=== PATIENT | female | born 1985 | race Caucasian/White ===

== ENCOUNTER 2022-12-07 05:52 | Emergency (ER) | payer BC, SELFPAY ==
--- NOTE | 2022-12-07 | ECG_ITS ---
Test Reason : ABD PAIN Blood Pressure : / mmHG Vent. Rate : 082 BPM Atrial Rate : 082 BPM P-R Int : 184 ms QRS Dur : 084 ms QT Int : 402 ms P-R-T Axes : 060 047 025 degrees QTc Int : 469 ms Normal sinus rhythm Normal ECG No previous ECGs available Referred By: Generic ED Physician Electronically Signed By:DESHAUN CANALES MD
--- NOTE | ~2022-12-07 | US_ITS ---
EXAMINATION: US ABDOMEN LIMITED CLINICAL INFORMATION: Right upper quadrant pain. COMPARISON: None available. TECHNIQUE: Real-time imaging of the right upper quadrant abdominal viscera. FINDINGS: LIVER: Visualized portions unremarkable. GALLBLADDER: Mildly distended containing multiple gallstones measuring up to 1.6 cm without surrounding abnormality. No mural thickening or pericholecystic fluid. COMMON BILE DUCT: Normal in caliber measuring 0.3 cm in diameter. US/US abdomen limited IMPRESSION: Cholelithiasis without evidence for acute cholecystitis.
[2022-12-07 05:53] VITALS: BP 138/82; PULSE 71; RESP 18; TEMP 36.6; O2SAT 100; BMI 31.8
[2022-12-07 06:22] LABS: MANUAL DIFF FLAG NO
[2022-12-07 06:24] LABS: Appearance Urine Clear; Color Urine Yellow; Glucose Urine UA Negative (Negative); Leukocyte Esterase Urine Negative (Negative); Nitrite Urine Negative (Negative); Urine Blood Negative (Negative); Urine Ketones Negative (Negative); Urine Protein Negative (Neg-Trace)
[2022-12-07 06:26] LABS: UPreg QC Valid YES; Urine Pregnancy NEGATIVE (NEGATIVE)
[2022-12-07 06:27] LABS: Basophils Absolute Auto 0.1 X10*3/uL (0.0-0.2); Basophils Percent Auto 0.7 % (0-2); Eosinophils Absolute Auto 0.2 X10*3/uL (0.0-0.4); Eosinophils Percent Auto 2.1 % (0-4); Hematocrit 41.9 % (37.0-47.0); Hemoglobin 13.8 g/dl (12.0-16.0); Imm Gran Abs Auto 0.02 X10*3/uL (0.00-0.03); Imm Gran Pct Auto 0.2 % (0.0-0.4); Lymphocytes Absolute Auto 3.5 X10*3/uL (1.2-4.9); Lymphocytes Percent Auto 38.4 % (20-40); Mean Corpuscular HGB Conc 32.9 g/dl (31.0-35.0); Mean Corpuscular Hemoglobin 28.9 pg (27.0-33.0); Mean Corpuscular Volume 87.8 fL (80.0-98.0); Mean Platelet Volume 10.6 fL (9.4-12.3); Monocytes Absolute Auto 0.7 X10*3/uL (0.1-1.2); Monocytes Percent Auto 7.9 % (2-11); Neutrophils Absolute Auto 4.7 x10*3/uL (2.0-8.3); Neutrophils Percent Auto 50.7 % (45-73); Platelet Count 242 X10*3/uL (160-400); Red Blood Count 4.77 X10*6/uL (4.20-5.50); Red Cell Distribution Width 12.7 % (11.0-16.0); White Blood Count 9.2 X10*3/uL (4.8-10.8)
[2022-12-07 06:29] VITALS: BP 137/83; PULSE 77; RESP 15; TEMP 36.7; O2SAT 97
--- NOTE | 2022-12-07 06:30 | PC.NURSE ---
Pt frame changer into hospital attire, labs collected and sent. Will continue to monitor.
--- NOTE | 2022-12-07 06:30 | MHC.EDTECH ---
THIS PCT JUST ASSUMED CARE OF PATIENT ,BLOOD DRAWN AND URINE SAMPLE COLLECTED AND SENT TO LAB ,VITALS SIGN TAKEN,EKG DONE AND WAS READ BY PROVIDER ,PT BOYFRIEND AT BEDSIDE ,PT IS RESTING QUIETLY IN BED .
--- NOTE | 2022-12-07 06:33 | PC.NURSE ---
pt denies any pain upon voiding, denies any issues with her bowel movement. Pain level is 8/10. Pt awaiting to be seen by provider. Will continue to monitor.
[2022-12-07 06:39] LABS: Alanine Aminotransferase 15 U/L (0-31); Alkaline Phosphatase 59 U/L (39-117); Anion Gap 11 (12-20); Aspartate Amino Transferase 17 U/L (5-31); Bilirubin Direct 0.1 mg/dL (0.0-0.5); Bilirubin Total 0.4 mg/dL (0.0-1.0); Blood Urea Nitrogen 18 mg/dL (9-16); Calcium 9.8 mg/dL (8.4-10.2); Carbon Dioxide 23 mmol/L (22-29); Chloride 110 mmol/L (96-108); Creatinine Clr Calc Pharmacy 97.2; Estimated Glomerular Filt Rate > 60; Glucose Random 96 mg/dL (60-115); Lipase 31 U/L (8-78); Potassium 4.2 mmol/L (3.3-5.1); Sodium 140 mmol/L (135-145); Total Protein 6.7 g/dL (6.5-8.0)
--- NOTE | 2022-12-07 06:39 | ED_ITS ---
HPI - General Adult General Chief complaint: Abdominal Pain Stated complaint: abd pain Time Seen by Provider: 12/07/22 06:35 Source: patient Mode of arrival: ambulatory Limitations: no limitations History of Present Illness HPI narrative: Patient is a 37 year old assigned female at with a history of thyroid dis ease and anxiety presenting to the emergency department today with epigastric pain. Patient states that over the last few days she she has had epigastric pain. Patient states that she took Ativan with no relief. Patient denies any dizziness, lightheadedness, nausea, vomiting, fever, chills, blurry vision, double vision, loss of vision, chest pain, difficulty breathing, shortness of breath, back pain, night sweats, pain with urination, increased urinary frequency, increased urinary urgency, blood in her urine or stool, syncope or a near syncopal episode, recent trauma or falls, bowel incontinence, bladder incontinence, bowel retention, bladder retention, or any other complaints at this time. Onset (ago): day(s) Location: abdomen Radiation: non-radiation Severity: mild Severity scale (1-10): 3 Quality: dull Pain Consistency: constant Relieving factors: none Exacerbating factors: none Associated symptoms: denies other symptoms Treatments prior to arrival: other (ativan) Related Data Previous Rx's Medication Instructions Recorded omeprazole 20 mg capsule,delayed 20 mg PO DAILY #30 caps 12/07/22 release Allergies Allergy/AdvReac Type Severity Reaction Status Date / Time Seasonal Allergies Allergy Runny Nose Verified 12/07/22 05:57 Review of Systems Constitutional: Constitutional: Reports no additional constitutional complaints, Denies chills, Denies fever(s) and Denies night sweats Eyes: Eyes: Reports no additional eye complaints, Denies blurry vision, Denies change in vision, Denies diplopia, Denies eye discharge, Denies loss of vision and Denies eye pain ENT: Denies dizziness Cardiovascular: Cardiovascular: Reports no additional cardiovascular complaints, Denies chest pain, Denies lightheadedness, Denies Loss of Consciousness and Denies dyspnea Respiratory: Respiratory: Reports no additional respiratory complaints and Denies dyspnea Gastrointestinal: Gastrointestinal: Reports no additional gastrointestinal complaints, Reports abdominal pain, Denies melena, Denies hematochezia, Denies change in bowel habits and Denies change in stool character Genitourinary: Genitourinary: Denies hematuria, Denies urinary frequency, Denies dysuria, Denies urinary incontinence, Denies urinary hesitancy and Denies urinary urgency Musculoskeletal: Musculoskeletal: Reports no additional musculoskeletal complaints, Denies numbness and Denies tingling Neurologic: Denies dizziness, Denies loss of vision, Denies numbness and Denies tingling Psychiatric: Psychiatric: Reports no additional psychiatric complaints Endocrine: Endocrine: Reports no additional endocrine complaints Hematologic/Lymphatic: Hematologic/Lymphatic: Reports no additional hematologic/lymphatic complaints Allergic/Immunologic: Allergic/Immunologic: Reports no additional allergic/immunologic complaints PMFSH Past Medical History Attestation statement: The following information was validated with the patient. Source: old records reviewed and nursing notes reviewed Physical Exam ED Vital Signs: Vital Signs - 24 hr 12/07/22 05:53 12/07/22 06:29 12/07/22 07:15 Temperature 97.8 F 98.1 F 97.6 F Pulse Rate 71 77 69 Respiratory Rate 18 15 16 Blood Pressure 138/82 137/83 135/79 Pulse Oximetry 100 97 100 Oxygen Delivery Method Room Air Room Air Room Air 12/07/22 09:53 Temperature Pulse Rate 72 Respiratory Rate 14 Blood Pressure 127/61 Pulse Oximetry 100 Oxygen Delivery Method Room Air BMI result Body Mass Index 31.8 Const General: cooperative, no acute distress, alert and awake Nutritional Appearance: well nourished Orientation/consciousness: patient oriented x3 Limitations: no limitations HENMT Head: Yes normal to inspection and Yes atraumatic Ears: hearing grossly normal bilaterally and external ears normal General nose exam: Normal external nose present, no nasal discharge noted and no epistaxis Face and sinus: Yes normal facial exam, No abrasion and No laceration Mouth: Normal oral and palatal mucosa present, no drooling and no muffled voice Eyes General: appearance normal, both eyes and all related structures Periorbital: periorbital findings normal Eyelids: Yes eyelids normal Conjunctivae: conjunctivae normal Pupils: Equal, round and reactive pupils present EOM: EOMs intact bilaterally Neck Neck: Yes normal visual inspection, Yes full ROM and Yes no lymphadenopathy Chest Chest palpation & inspection: normal inspection of the chest Resp Effort & Inspection: normal respiratory effort and able to speak in complete sentences Auscultation: clear to auscultation bilaterally Cardio Rate: regular rate Rhythm: regular rhythm GI Inspection: Yes normal to inspection Palpation (GI): Soft to palpation, not firm, nontender and no guarding Neuro General: patient oriented x3 and moves all extremities Cranial nerves: Yes Equal, round and reactive pupils present Cognition (Neuro): normal cognition Motor exam (neuro): 5/5 motor strength present throughout Sensory Exam: Normal double simultaneous stimulation for sensation Coordination: [id number]-droa test normal Extrem General: Yes normal to inspection, Yes full ROM and Yes capillary refill normal Psych Appearance: grossly normal Mental Status: mental status grossly normal Affect: normal affect Attitude: cooperative Thought process: Normal thought process present Thought content: Normal thought content present Insight: Good insight present (Psych) Medications Administered Discontinued Medications Generic Name Dose Route Start Last Admin Trade Name Freq PRN Reason Stop Dose Admin Al Hydroxide/Mg Hydroxide 15 ml 12/07/22 06:46 12/07/22 08:10 Magnesium Hydrox/Alum Hydrox 30 Ml Oral.Susp PO 12/07/22 06:47 15 ml ONCE ONE Administration Sodium Chloride 1,000 mls @ 999 mls/hr 12/07/22 07:00 12/07/22 09:12 Ns IV 12/07/22 08:00 Infused .Q1H1M BETHANY Infusion Ketorolac Tromethamine 15 mg 12/07/22 10:20 12/07/22 10:48 Ketorolac Tromethamine 15 Mg/Ml Vial IVPUSH 12/07/22 10:21 15 mg ONCE ONE Administration Pantoprazole Sodium 40 mg 12/07/22 06:46 12/07/22 08:10 Pantoprazole Sodium 40 Mg/10 Ml Vial IVPUSH 12/07/22 06:47 40 mg ONCE ONE Administration Medical Decision Making Medical Decision Making [facility] Narrative: Patient is a 37 year old assigned female at with a history of anxiety and thyroid disease presenting to the emergency department today with epigastric pain. Patient's physical exam was unremarkable. Patient's blood work was unremarkable. Patient's urine showed no acute process. Patient's abdominal US showed cholelithiasis without cholecystitis. I explained my physical exam findings as well as all test results to the patient. I answered all questions asked by the patient. Patient received IV protonix, fluids, and toradol which she stated helped her pain significantly. I stressed the importance of the patient taking her medication as prescribed. I stressed the importance of the patient following up with her primary care provider, a GI specialist for her epigastric pain, and a general surgeon for her gallstones. I stressed the importance of the patient returning to the emergency department immediately if her symptoms were to worsen or if she were to develop any dizziness, shortness of breath, difficulty breathing, chest pain, blurry vision, loss of vision, nausea, vomiting, abdominal pain, fever, chills, back pain, or any other complaints. Patient verbalized agreement and understanding with this treatment plan and discharge. Differential Diagnosis Differential Diagnoses: The differential diagnosis associated with the presentation includes Cholelithiasis Cholecystitis Epigastric pain Gastric ulcer GERD Abdominal pain Admission/Observation Consideration of admission/observation: Escalation of care including admi ssion/observation considered Patient would have been admitted to the hospital had her work up had any findings where hospital admission was appropriate and her clinical presentation warranted hospital admission. Lab Data MDM Lab Attestation statement: I reviewed the patient's lab results. My interpretation of these studies and their corresponding values is that they are grossly normal. 12/07/22 06:17 12/07/22 06:21 Labs: Lab Results 12/07/22 12/07/22 12/07/22 Range/Units 06:17 06:17 06:17 WBC 9.2 (4.8-10.8) X10*3/uL RBC 4.77 (4.20-5.50) X10*6/uL Hgb 13.8 (12.0-16.0) g/dl Hct 41.9 (37.0-47.0) % MCV 87.8 (80.0-98.0) fL MCH 28.9 (27.0-33.0) pg MCHC 32.9 (31.0-35.0) g/dl RDW 12.7 (11.0-16.0) % Plt Count 242 (160-400) X10*3/uL MPV 10.6 (9.4-12.3) fL Immature Gran % (Auto) 0.2 (0.0-0.4) % Neut % (Auto) 50.7 (45-73) % Lymph % (Auto) 38.4 (20-40) % [place] % (Auto) 7.9 (2-11) % Eos % (Auto) 2.1 (0-4) % Baso % (Auto) 0.7 (0-2) % Lymph # (Auto) 3.5 (1.2-4.9) X10*3/uL [place] # (Auto) 0.7 (0.1-1.2) X10*3/uL Eos # (Auto) 0.2 (0.0-0.4) X10*3/uL Baso # (Auto) 0.1 (0.0-0.2) X10*3/uL Abs Immat Gran (auto) 0.02 (0.00-0.03) X10*3/uL Absolute Neuts (auto) 4.7 (2.0-8.3) x10*3/uL Absolute Nucleated RBC 0.000 (0.0-0.012) X10*3/uL Nucleated RBC % (auto) 0.0 (0.0-0.2) /100WBC Sodium (135-145) mmol/L Potassium (3.3-5.1) mmol/L Chloride (96-108) mmol/L Carbon Dioxide (22-29) mmol/L Anion Gap (12-20) BUN (9-16) mg/dL Creatinine (0.5-1.4) mg/dL Estim Creat Clear Calc Estimated GFR Random Glucose (60-115) mg/dL Calcium (8.4-10.2) mg/dL Total Bilirubin (0.0-1.0) mg/dL Direct Bilirubin (0.0-0.5) mg/dL AST (5-31) U/L ALT (0-31) U/L Alkaline Phosphatase (39-117) U/L Total Protein (6.5-8.0) g/dL Albumin (3.5-5.0) g/dL Lipase (8-78) U/L Urine Color Yellow Urine Appearance Clear Urine pH 6.0 (5.0-9.0) Ur Specific [place] 1.020 (1.005-1.025) Urine Protein Negative (Neg-Trace) mg/dL Urine Glucose (UA) Negative (Negative) mg/dL Urine Ketones Negative (Negative) mg/dL Urine Blood Negative (Negative) Urine Nitrite Negative (Negative) Ur Leukocyte Esterase Negative (Negative) Urine Test NEGATIVE (NEGATIVE) 12/07/22 Range/Units 06:21 WBC (4.8-10.8) X10*3/uL RBC (4.20-5.50) X10*6/uL Hgb (12.0-16.0) g/dl Hct (37.0-47.0) % MCV (80.0-98.0) fL MCH (27.0-33.0) pg MCHC (31.0-35.0) g/dl RDW (11.0-16.0) % Plt Count (160-400) X10*3/uL MPV (9.4-12.3) fL Immature Gran % (Auto) (0.0-0.4) % Neut % (Auto) (45-73) % Lymph % (Auto) (20-40) % [place] % (Auto) (2-11) % Eos % (Auto) (0-4) % Baso % (Auto) (0-2) % Lymph # (Auto) (1.2-4.9) X10*3/uL [place] # (Auto) (0.1-1.2) X10*3/uL Eos # (Auto) (0.0-0.4) X10*3/uL Baso # (Auto) (0.0-0.2) X10*3/uL Abs Immat Gran (auto) (0.00-0.03) X10*3/uL Absolute Neuts (auto) (2.0-8.3) x10*3/uL Absolute Nucleated RBC (0.0-0.012) X10*3/uL Nucleated RBC % (auto) (0.0-0.2) /100WBC Sodium 140 (135-145) mmol/L Potassium 4.2 (3.3-5.1) mmol/L Chloride 110 H (96-108) mmol/L Carbon Dioxide 23 (22-29) mmol/L Anion Gap 11 L (12-20) BUN 18 H (9-16) mg/dL Creatinine 0.83 (0.5-1.4) mg/dL Estim Creat Clear Calc 97.2 Estimated GFR > 60 Random Glucose 96 (60-115) mg/dL Calcium 9.8 (8.4-10.2) mg/dL Total Bilirubin 0.4 (0.0-1.0) mg/dL Direct Bilirubin 0.1 (0.0-0.5) mg/dL AST 17 (5-31) U/L ALT 15 (0-31) U/L Alkaline Phosphatase 59 (39-117) U/L Total Protein 6.7 (6.5-8.0) g/dL Albumin 4.0 (3.5-5.0) g/dL Lipase 31 (8-78) U/L Urine Color Urine Appearance Urine pH (5.0-9.0) Ur Specific [place] (1.005-1.025) Urine Protein (Neg-Trace) mg/dL Urine Glucose (UA) (Negative) mg/dL Urine Ketones (Negative) mg/dL Urine Blood (Negative) Urine Nitrite (Negative) Ur Leukocyte Esterase (Negative) Urine Test (NEGATIVE) Independent Interpretation I performed an independent interpretation of an: Ultrasound Interpretation: My interpretation is in agreement with the radiologist's impression of this imag ing study. EXAMINATION: US ABDOMEN LIMITED CLINICAL INFORMATION: Right upper quadrant pain. COMPARISON: None available. TECHNIQUE: Real-time imaging of the right upper quadrant abdominal viscera. FINDINGS: LIVER: Visualized portions unremarkable. GALLBLADDER: Mildly distended containing multiple gallstones measuring up to 1.6 cm without surrounding abnormality. No mural thickening or pericholecystic fluid. COMMON BILE DUCT: Normal in caliber measuring 0.3 cm in diameter. US/US abdomen limited IMPRESSION: Cholelithiasis without evidence for acute cholecystitis. Dictated By: Shree Saunders MD Signed By: Electronically signed by Shree Saunders MD 12/07/22 1015 Vent. Rate: 082 BPM ? ? Atrial Rate: 082 BPM P-R Int: 184 ms? QRS Dur: 084 ms QT Int: 402 ms ? ? ? P-R-T Axes: 060 047 025 degrees QTc Int: 469 ms ? Normal sinus rhythm Normal ECG No previous ECGs available Electronically Signed By:JE HAMMER MD Dictated By: Je Hammer MD Signed By: Electronically signed by Je Hammer MD 12/07/22 1007 Radiology Impression Discussion of test interpretation with radiology: I have reviewed the radiologist's reading. Prescription Management I considered prescription management with: Other (omeprazole was prescribed) Discharge Plan Discharge Clinical Impression: Cholelithiasis, Acute epigastric pain Patient Disposition: Home, Self-Care Instructions: Gallstones (ED), Epigastric Pain (ED) Additional Instructions: Follow up with your primary care provider, a general surgeon to further evaluate your cholelithiasis, and a GI specialist to discuss your persistent epigastric pain. Return to the emergency department immediately if your symptoms worsen or if you develop any dizziness, shortness of breath, difficulty breathing, chest pain, blurry vision, loss of vision, nausea, vomiting, abdominal pain, fever, chills, back pain, or any other complaints. Prescriptions: New omeprazole 20 mg capsule,delayed release(DR/EC) 20 mg PO DAILY Qty: 30 0RF Referrals: [facility] Gastroenterology Services [Provider Group] (Call to establish and follow up with a GI specialist for your persistent epigastric pain.) [facility] General Surgeons [Provider Group] (Call to establish and follow up with a general surgeon to discuss your gallstones.) [facility] Family Medicine [Provider Group] (Call to establish and follow up with a primary care provider. If you already have a primary care provider, please follow up with them.) [facility] [Provider Group] (Call to establish and follow up with a primary care provider. If you already have a primary care provider, please follow up with them.) [facility] [Provider Group] (Call to establish and follow up with a primary care provider. If you already have a primary care provider, please follow up with them.) Stand Alone Forms: Work/School Release Interventions: ED Discharge Assessment Last Done: 12/07/22 11:00 Discharge Date/Time: 12/07/22 11:37 Print Language: [place]
[2022-12-07 07:15] VITALS: BP 135/79; PULSE 69; RESP 16; TEMP 36.4; O2SAT 100
--- NOTE | 2022-12-07 07:39 | PC.NURSE ---
pt a&ox3, vss, nsr on the wire walker, pt stating that she has an 8/10 pain in the epigastric area that radiates towards her right side/underneath her ribcage. pt states that pain was a sudden onset and occurred after waking up at 3 in the morning.
[2022-12-07] MEDS: 0.9 % Sodium Chloride 1,000 ML 999 ML IV (08:02)
[2022-12-07] MEDS: Pantoprazole Sodium 40 MG/10 ML VIAL IVPUSH (08:10)
[2022-12-07] MEDS: Magnesium Hydrox/Alum Hydrox 30 ML ORAL.SUSP 15 ML PO (08:10)
--- NOTE | 2022-12-07 08:12 | PC.NURSE ---
20g IV placed in the right AC w/o complications, IVF and medications administered per provider order.
[2022-12-07 09:53] VITALS: BP 127/61; PULSE 72; RESP 14; O2SAT 100
--- NOTE | 2022-12-07 09:54 | PC.NURSE ---
pt a&ox3, vss, pt states that her pain decreased to a 5/10 after medication administration. pt states the pain is more localized towards the epigastric area and does not radiate towards any other areas at the moment, pt resting comfortably with the lights dimmed.
[2022-12-07] MEDS: Ketorolac Tromethamine 15 MG/ML VIAL IVPUSH (10:48)
--- NOTE | 2022-12-07 10:51 | PC.NURSE ---
medications administered per provider order, pt stating that [facility] prior [facility], will notify provider.
== END 2022-12-07 11:37 | disposition home or self-care (01) ==
PROVIDERS: Emergency Provider Emergency Medicine Emergency Medical Services
DX: K80.20 Calculus of gallbladder without cholecystitis without obstruction (principal); R10.13 Epigastric pain; R10.11 Right upper quadrant pain; Z79.899 Other long term (current) drug therapy
CPT/HCPCS: 36415; 76705; 80053; 81003; 81025; 82248; 83690; 85025; 93005; 96361; 96374; 96375; 99284; 99285; J1885

== ENCOUNTER → 2022-12-07 06:20 | Outpatient (BNV) | payer BC, SELFPAY | PROVIDERS: Emergency Provider Emergency Medicine Emergency Medical Services; Visit Provider Internal Medicine Cardiovascular Disease | DX: R10.9 Unspecified abdominal pain (principal) | CPT/HCPCS: 93010 ==